=== PATIENT | male | born 1965 | race Caucasian/White ===

== ENCOUNTER 2017-01-15 16:27 | Emergency (ER) | payer OTHER ==
[~2017-01-15] VITALS: Ht 162.6 cm; Wt 65.0 kg
[~2017-01-15 16:27] MED LIST: D-ME473S18 PO; IBUP-1542 PO
[2017-01-15 16:32] VITALS: Ht 162.6 cm; Wt 65.0 kg
[2017-01-15] MEDS ORDERED: ACETAMINOPHEN 325 MG TAB PO ONE (17:00)
[2017-01-15] MEDS ORDERED: IBUP-1542 PO (17:54)
--- NOTE | 2017-01-15 18:03 | RADRPT ---
PROCEDURE: XR Finger. CLINICAL INDICATION: Left second digit pain. TECHNIQUE: Two views of the left index finger are available for review. COMPARISON: None available FINDINGS: Note that examination is limited in evaluation without an oblique view. There is no definite acute f racture or dislocation. There is minimal osseous spurring within the proximal and distal interphalan geal joints as well at the metacarpophalangeal joint. There is mild soft tissue swelling surrounding the proximal phalanx. RPTAT: HTLT IMPRESSION: No acute bony abnormality. .Gracie Guerra MD, MD Date Time Electronically viewed and signed by .Gracie Guerra MD, MD on 01/15/2017 18:03 .T/
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
== END 2017-01-15 18:11 | disposition home or self-care (01) ==
LOC: FTE 16:27
DX: S20.212A Contusion of left front wall of thorax, initial encounter (principal); S60.022A Contusion of left index finger without damage to nail, initial encounter; E11.9 Type 2 diabetes mellitus without complications; V49.40XA Driver injured in collision with unspecified motor vehicles in traffic accident, initial encounter
CPT/HCPCS: 71010; 73140; 93005; Z7502; Z7610

== ENCOUNTER 2017-03-13 19:13 | Inpatient (IN) | END 2017-03-17 00:45 | disposition home health service (06) | DRG 638 ==

== ENCOUNTER 2017-05-05 13:13 | Emergency (ER) | END 2017-05-05 14:17 | disposition home or self-care (01) ==